=== PATIENT | female | born 1995 | race African-American/Black ===

== ENCOUNTER 2023-01-20 14:08 | Emergency (ER) | payer SELFPAY ==
[~2023-01-20] VITALS: Ht 160 cm; Wt 63.5 kg
--- NOTE | 2023-01-20 14:12 | NUR ---
CALLED TO TRIAGE, NO RESPONSE.
--- NOTE | 2023-01-20 14:34 | NUR ---
PT WALKED INTO ER C/O RIGHT SIDED FLANK PAIN SINCE YESTERDAY. PT DENIES HEMATURIA AND ADMITS TO HX OF KIDNEY STONES. 04/18 SHARP PAIN. PT AMBULATED WITH STEADY GAIT, BREATHING EVEN AND UNLABORED.
--- NOTE | 2023-01-20 14:40 | NUR ---
ESTABLISHED IV LINE LEFT AC 20 G, INFUSING WELL
--- NOTE | 2023-01-20 14:42 | NUR ---
URINE / BLOOD SAMPLE OBTAINED SENT TO LAB
[2023-01-20] MEDS ORDERED: ONDANSETRON HCL/PF 4 MG/2 ML VIAL ONE (14:54)
[2023-01-20] MEDS ORDERED: MORPHINE SULFATE INJ 4 MG/ML DISP.SYRIN ONE (14:55)
[2023-01-20] MEDS ORDERED: IV NS 0.9% 1,000 ML BAG IV ONE (15:00)
[2023-01-20] MEDS ORDERED: ONDANSETRON HCL/PF 4 MG/2 ML VIAL IVP ONE (15:00)
[2023-01-20] MEDS ORDERED: MORPHINE SULFATE INJ 2 MG/ML DISP.SYRIN IV ONE ×2 (15:00→17:30)
[2023-01-20 15:06] LABS: BASOPHILS # (AUTO) 0.1 K/uL (0.0-0.2); BASOPHILS % (AUTO) 0.4 % (0.0-2.0); HEMATOCRIT 40 % (33-45); HEMOGLOBIN 13.2 g/dL (11.5-14.8); LYMPHOCYTES # (AUTO) 1.5 K/uL (0.8-4.8); LYMPHOCYTES % (AUTO) 9.6 % (20.0-44.0); MEAN CORPUSCULAR HGB CONC 33 g/dl (31.0-36.0); MEAN CORPUSCULAR VOLUME 85 fL (82-100); MONOCYTES # (AUTO) 0.8 K/uL (0.1-1.30); MONOCYTES % (AUTO) 5.5 % (2.0-12.0); NEUTROPHILS # (AUTO) 12.7 K/uL (1.8-8.9); NEUTROPHILS % (AUTO) 84.5 % (43.0-81.0); PLATELET COUNT (AUTO) 389 K/uL (150-450); RED BLOOD CELL COUNT(AUTO) 4.73 MIL/uL (4.0-5.2)
[2023-01-20 15:25] LABS: ALBUMIN 4.4 g/dL (3.4-5.0); BILIRUBIN,DIRECT 0.1 mg/dL (0.0-0.2); BILIRUBIN,TOTAL 0.4 mg/dL (0.2-1.0); CALCIUM, SERUM 9.9 mg/dL (8.5-10.1); CREATININE 1.3 mg/dL (0.6-1.3); POTASSIUM 3.9 mmol/L (3.5-5.1); TOTAL PROTEIN, SERUM 8.2 g/dL (6.4-8.2)
--- NOTE | 2023-01-20 16:12 | NUR ---
TAKEN TO CT
[2023-01-20 16:54] LABS: BILIRUBIN,URINE NEGATIVE (NEGATIVE); COLOR,URINE YELLOW (YELLOW); LEUKOCYTE ESTERASE ,URINE NEGATIVE (NEGATIVE); NITRITE, URINE NEGATIVE (NEGATIVE); PH,URINE 6.5 (5.0-8.0); PROTEIN,URINE TRACE mg/dl (NEGATIVE); UGLUCOSE NEGATIVE (NEGATIVE); UROBILINOGEN,URINE 0.2 EU/dL (0.2)
[2023-01-20 17:07] LABS: BACTERIA,URINE Moderate /HPF (None Seen); RBC,URINE 51-80 /HPF (0-2); WBC,URINE NONE SEEN /HPF (0-3)
[2023-01-20] MEDS ORDERED: KETOROLAC TROMETHAMINE INJ 30 MG/ML VIAL IV ONE (17:30)
[2023-01-20] MEDS ORDERED: ONDA4TAB11 PO (17:34)
[2023-01-20] MEDS ORDERED: MORPHINE SULFATE INJ 2 MG/ML DISP.SYRIN ONE (17:34)
[2023-01-20] MEDS ORDERED: KETOROLAC TROMETHAMINE 15 MG/ML VIAL ONE (17:34)
[2023-01-20] MEDS ORDERED: OXYC-128 PO (17:34)
[2023-01-20] MEDS ORDERED: IBUP-1957 PO (17:34)
--- NOTE | 2023-01-20 18:13 | NUR ---
IV removed. Catheter intact and site benign. Pressure and 4x4 applied to site. No bleeding noted.
[2023-01-20 18:19] VITALS: BP 133/81
--- NOTE | 2023-01-20 18:19 | NUR ---
Patient discharged to home in stable condition. Written and verbal after care instructions given. Patient verbalizes understanding of instruction.
== END 2023-01-20 18:20 | disposition home or self-care (01) ==
LOC: ER 14:10
DX: N20.0 Calculus of kidney (principal); R10.9 Unspecified abdominal pain; Z60.2 Problems related to living alone; Z79.899 Other long term (current) drug therapy
CPT/HCPCS: 99285; 74176; 96374; 96375; 96361; 96376; 85025; 80048; 87086; 80076; 84703; 81001; 36415; J2270 ×2; J2405; J7030; J1885